=== PATIENT | female | born 1960 | race Caucasian/White ===

== ENCOUNTER 2019-08-10 09:31 | Inpatient (IN) | payer OTHER ==
[~2019-08-10] VITALS: Ht 165.1 cm; Wt 64.9 kg
[2019-08-10 09:41] VITALS: Ht 165.1 cm; Wt 64.9 kg
--- NOTE | 2019-08-10 10:18 | NUR ---
PT COMES TO ER WITH CONGESTION/COUGH X 3 WEEKS,PROGRESSIVELY GETTING WORSE THIS AM, DENIES CP , BUT REPORTS SOB. PTPALE IN COLOR, DIAPHORETIC WITH DRY COUGHING SPELLS. SON AT [facility] STATES HE WAS SICK TOO BT GETTING BETTER. DENY ANY RECENT TRAVEL. IV SL TO LEFT AC, MEDICATED ORDERED. IV FLUIDS INFUSING WELL. WILL CONT TOMONITOR.
[2019-08-10 10:31] LABS: CALCIUM 9.3 mg/dL (8.5-10.1); CHLORIDE SERUM 104 mmol/L (98-107); CREATININE SERUM 0.8 mg/dL (0.6-1.0); GFR1 > 60 mL/min; GLUCOSE SERUM 101 mg/dL (74-106); POTASSIUM SERUM 3.9 mmol/L (3.5-5.1); SODIUM SERUM 140 mmol/L (136-145)
[2019-08-10 10:36] LABS: ALBUMIN 3.2 g/dL (3.4-5.0); ALKALINE PHOSPHATASE 126 U/L (46-116); ALT/SGPT 22 U/L (14-59); AST/SGOT 13 U/L (15-37); BILIRUBIN TOTAL 0.3 mg/dL (0.20-1.00); TOTAL PROTEIN, SERUM 8.3 g/dL (6.4-8.2)
[2019-08-10 11:09] LABS: BASOPHIL % 0.2 % (0-2); PLATELET COUNT 477 x10^3mcL (130-400); RED CELL DISTRIBUTION WIDTH 14.8 % (11.5-14.5)
--- NOTE | 2019-08-10 11:19 | NUR ---
PT CONTINUES TO HAVE DRY COUGHING SPELLS. PT HAS MASK ON. WILL CONT TO MONITOR.
--- NOTE | 2019-08-10 11:28 | NUR ---
PT UPDATED ONPLAN OF CARE, PT VERBALIZED UNDERSTANDING. IV ANBX STARTED, CALL LIGHT WITHIN REACH. WILL CONT TO MONITOR.
[2019-08-10 11:38] LABS: UA SPECIFIC GRAVITY 1.025 (1.005-1.035); microscopic required? YES; urine erythrocyte NEGATIVE (NEGATIVE)
--- NOTE | 2019-08-10 13:10 | NUR ---
REPORT GIVEN TO SAMANTHA MARTÍNEZ, UPDAED ON STATUS, LABS AND VITALS. PT SABLE FOR TRANSFER. SL-INTACT.
--- NOTE | 2019-08-10 13:30 | NUR ---
RECEIVED PT VIA [employer] FROM E/D, ACCOMPANIED BY TRANSPORTER. PT A/A/O X 4, CALM, COOPERATIVE; C/O CONSTANT THROBBING H/A 12/29. AMBULATORY, NO GAIT OR BALANCE IMPAIRMENT NOTED WHEN WALKING FROM GURNEY TO BED. DENIES CHEST PAIN OR DISCOMFORT AT THIS TIME. SCD BY BEDSIDE; RESTRICTED EXTREMITY USE TO RUE 2/2 R MASTECTOMY. BUL CLEAR, BLL COARSE CRACKLES, CHEST RISING EVENLY, R/A, 96%, C/O DRY COUGH. WEARS FULL UPPER DENTURES. IV SITE LFA 20G, CDI. ORIENTED PT TO ROOM, BED CONTROLS, CALL LIGHT SYSTEM. SIDE RAILS UP X 2, BED IN LOW POSITION. WILL ENDORSE TO MAURICIO CASTRO.
[2019-08-10 14:29] VITALS: BP 153/65
--- NOTE | 2019-08-10 14:50 | NUR ---
PATIENT COMPLAINING OF HEADACHE 01/29. TYLENOL 650 MG PO GIVEN. WILL CONTINUE TO MONITOR.
--- NOTE | 2019-08-10 16:40 | NUR ---
PATIENT IN BED, WATCHING TV. FAMILY AT BEDSIDE. NON PRODUCTIVE COUGH NOTED. REMAINS ON ROOM AIR. NO ACUTE RESP DISTRESS NOTED. NO COMPLAINTS OF PAIN AT THIS TIME. IV INTACT AND PATENT. NO ERYTHEMA/SWELLING NOTED. SAFETY PRECAUTION IN PLACE. CALL LIGHT WITHIN REACH. WILL CONTINUE TO MONITOR. PNEUMOCOCCAL VACCINE GIVEN TO LEFT ARM. TOLERATED WELL. BANDAID IN PLACE.
--- NOTE | 2019-08-10 18:34 | NUR ---
PATIENT REQUESTING TO REMOVE IV FOR A LITTLE BIT FOR CONVENIENCE AND TO GO TO BATHROOM. INFORMED PATIENT THAT IV NEEDS TO BE REATTACHED TO CONTINUE INFUSION OF ABX. PT VERBALIZED UNDERSTANDING. NO ACUTE RESP DISTRESS NOTED. NONPRODUCTIVE COUGH NOTED. NO COMPLAINTS OF PAIN AT THIS TIME. SAFETY PRECAUTION IN PLACE. CALL LIGHT WITHIN REACH. WILL ENDORSE CARE TO PORTABLE IRRIGATION OPERATOR NURSE.
--- NOTE | 2019-08-10 19:35 | NUR ---
RECEIVED PT IN BED AWAKE, ALERT,ORIENTED X4. LUNG SOUNDS DIMINISHED AT THE BASES. PT HAS NO SOB ON ROOM AIR BUT FREQUENT COUGHING NOTED. PT STATED THERE IS NO PHLEGM COMING OUT. PT HAS NO C/O PAIN AT THIS TIME. W/ HL TO LTFA INTACT. CALL LIGHT W/IN REACH.
[2019-08-10 21:15] VITALS: BP 123/63
[2019-08-11 02:50] VITALS: BP 123/63
--- NOTE | 2019-08-11 03:05 | NUR ---
PT SEEN BY RESP. THERAPIST AT THIS TIME.
--- NOTE | 2019-08-11 05:22 | NUR ---
PT SLEPT IN SHORT INTERVALS. SHE WAS COUGHING FREQUENTLY ( DR. ROSARIO WAS INFORMED). SHE HAD NO C/O PAIN. DUE IV MEDS GIVEN. HL TO LTFA INTACT AND PATENT. ALL NEEDS ATTENDED TO.
[2019-08-11 05:57] VITALS: BP 137/55
[2019-08-11 06:23] LABS: BASOPHIL % 0.4 % (0-2); PLATELET COUNT 390 x10^3mcL (130-400)
[2019-08-11 06:49] LABS: ALKALINE PHOSPHATASE 132 U/L (46-116); ALT/SGPT 23 U/L (14-59); AST/SGOT 12 U/L (15-37); BILIRUBIN TOTAL 0.26 mg/dL (0.20-1.00); CALCIUM 9.5 mg/dL (8.5-10.1); CARBON DIOXIDE 29.6 mmol/L (21-32); CHLORIDE SERUM 104 mmol/L (98-107); CREATININE SERUM 0.7 mg/dL (0.6-1.0); GFR1 > 60 mL/min; GLUCOSE SERUM 89 mg/dL (74-106); SODIUM SERUM 140 mmol/L (136-145); TOTAL PROTEIN, SERUM 7.9 g/dL (6.4-8.2)
[2019-08-11 06:50] LABS: ALBUMIN 2.9 g/dL (3.4-5.0)
[2019-08-11 07:03] LABS: RED CELL DISTRIBUTION WIDTH 15.1 % (11.5-14.5)
[2019-08-11 07:39] VITALS: BP 154/55
--- NOTE | 2019-08-11 08:00 | NUR ---
RECEIVED PATIENT A/A/OX4; COUGHING FREQUENTLY, NON-PRODUCTIVE. HOARSE VOICE.NO SOB ON RA. O2 SAT 93%. BREATHING SOUND DIMINISHED TATI BASES. DENIED CHEST PAIN. AMBULATORY. POOR APPETITE. IVHL'D TO [facility]. SITE CLEAN. CALL LIGHT IN REACH.
--- NOTE | 2019-08-11 10:26 | NUR ---
DR. PLUNKETT CAME TO SEE PATIENT. NEW ORDER WRITTEN.
[2019-08-11 13:22] VITALS: BP 160/79
[2019-08-11 17:34] VITALS: BP 127/82
--- NOTE | 2019-08-11 17:51 | NUR ---
HAD A LONG TIME NAP. VOICE HOARSE. COUGHING SLIGHT SUBSIDING. NO SOB ON RA. ENDORSED CARE TO NOC NURSE.
--- NOTE | 2019-08-11 19:35 | NUR ---
RECEIVED PT IN BED ASLEEP BUT EASILY AROUSABLE. LUNG SOUNDS DIMINISHED AT THE BASES. NO SOB AT THIS TIME. SHE HAS NO C/O PAIN. PT STILL COUGHING FREQUENTLY . W/ HL TO LTFA. CALL LIGHT W/IN REACH.
[2019-08-11 21:41] VITALS: BP 110/70
--- NOTE | 2019-08-12 03:00 | NUR ---
PT ASLEEP BUT EASILY AROUSABLE. PT ANSWERED " I'M OKAY " WHEN ASKED HOW SHE IS THEN WENT BACK TO SLEEP.
--- NOTE | 2019-08-12 05:27 | NUR ---
PT SLEPT IN LONG INTERVALS. SHE HAD NO C/O SOB AND REMAINED ON ROOM AIR THROUGHOUT THE NIGHT. PT HAD NO C/O PAIN. HL TO LTFA INTACT. ALL NEEDS ATTENDED TO.
[2019-08-12 05:48] VITALS: BP 108/63
[2019-08-12 06:13] LABS: BASOPHIL % 0.5 % (0-2)
[2019-08-12 06:15] LABS: PLATELET COUNT 462 x10^3mcL (130-400); RED CELL DISTRIBUTION WIDTH 14.8 % (11.5-14.5)
[2019-08-12 07:12] LABS: ALKALINE PHOSPHATASE 126 U/L (46-116); ALT/SGPT 24 U/L (14-59); AST/SGOT 20 U/L (15-37); BILIRUBIN TOTAL 0.1 mg/dL (0.20-1.00); CALCIUM 9.5 mg/dL (8.5-10.1); CARBON DIOXIDE 26.8 mmol/L (21-32); CHLORIDE SERUM 101 mmol/L (98-107); CREATININE SERUM 0.7 mg/dL (0.6-1.0); GFR1 > 60 mL/min; GLUCOSE SERUM 89 mg/dL (74-106); MAGNESIUM 2.3 mg/dL (1.8-2.4); POTASSIUM SERUM 3.5 mmol/L (3.5-5.1); SODIUM SERUM 140 mmol/L (136-145)
[2019-08-12 07:15] LABS: ALBUMIN 3.1 g/dL (3.4-5.0); TOTAL PROTEIN, SERUM 8.3 g/dL (6.4-8.2)
--- NOTE | 2019-08-12 07:30 | NUR ---
PT IS AAOX4. NORMAL S1 S2 NOTED. IV CATH TO LFA PATENT. SITE WNL. RESP EVEN, SHALLOW, WITH SOB UPON EXERTION. LUNG SOUNDS DIMINISHED BILATERALLY, ON R/A. PT DENIES PAIN AT THIS TIME. CALL LIGHT WITHIN REACH. BED IN LOWEST POSITION.
[2019-08-12 08:33] VITALS: BP 147/74
--- NOTE | 2019-08-12 09:30 | NUR ---
DUE MEDS GIVEN AND TOLERATED WELL. PT DENIES PAIN AND DISCOMFORT. CALL LIGHT WITHIN REACH. WILL CONTINUE TO MONITOR.
[2019-08-12 12:55] VITALS: BP 119/74
--- NOTE | 2019-08-12 15:55 | NUR ---
SCHEDULED MED GIVEN AND TOLERATED WELL. PT RESP SHALLOW WITH MILD SOB WHEN TALKING AND MOVING IN BED. PT DENIES PAIN. CALL LIGHT WITHIN REACH.
[2019-08-12 16:13] VITALS: BP 144/64
--- NOTE | 2019-08-12 18:50 | NUR ---
PT IS AAOX1. PT IV TO LAC PULLED OUT. NEW IV CATH STARTED TO LH, 22 G NO FIRST ATTEMPT. SITE WNL. COVERED WITH CDI DRESSING. PT NOTED WITH NONPRODUCTIVE COUGH. NO R/A. DENIES PAIN AND DISCOMFORT. CALL LIGHT WITHIN REACH. BED IN LOWEST POSTION. WILL ENDORSE TO LOLI RN.
--- NOTE | 2019-08-12 19:25 | NUR ---
RECIEVED PT RESTING IN BED WITH NO ACUTE DISTRESS NOTED AT THIS TIME, ASSESSMENT PERFORMED AT THIS ITME, PT IS A/OX4 NO COMPLAINTS OF [place] OR DIZZINESS AT THIS TIME, PT LUNG SOUNDS DIMINISHED, ON RA NO SOB, PT DENIES PAIN AT THIS TIME, IV TO THE CDI, ALL NEEDS ATTENDED TO AT THIS TIME, SAFETY PRECAUTIONS IN PLACE, WILL CONTINUE TO MONITOR
[2019-08-12 20:38] VITALS: BP 148/64
--- NOTE | 2019-08-13 00:40 | NUR ---
PT RESTING IN BED ON LEFT SIDE WITH NO ACUTE DISTRESS NOTED AT THIS TIME, RESPIRATIONS EVEN AND UNLABORED, NO SIGNS OF SOB OR PAIN, ALL NEEDS ATTENDED TO, SAFETY PRECAUTIONS IN PLACE, WILL CONTINUE TO MONITOR
--- NOTE | 2019-08-13 05:11 | NUR ---
PT RESTED COMFORTABLY THROUGH THE NIGHT, PT COMPLAINED OF COUGHING, BUT NO SOB THROUGH NIGHT, PT DENIED PAIN DURING CARE, ALL PT NEEDS ATTENDED TO, VSS, SAFETY PRECAUTIONS IN PLACE, WILL CONTINUE TO MONITOR AND ENDORSE CARE.
[2019-08-13 05:42] VITALS: BP 143/53
[2019-08-13 06:29] LABS: ALKALINE PHOSPHATASE 128 U/L (46-116); ALT/SGPT 22 U/L (14-59); AST/SGOT 19 U/L (15-37); BILIRUBIN TOTAL 0.19 mg/dL (0.20-1.00); CALCIUM 9.6 mg/dL (8.5-10.1); CARBON DIOXIDE 28.5 mmol/L (21-32); CHLORIDE SERUM 103 mmol/L (98-107); CREATININE SERUM 0.8 mg/dL (0.6-1.0); GFR1 > 60 mL/min; GLUCOSE SERUM 105 mg/dL (74-106); MAGNESIUM 2.3 mg/dL (1.8-2.4); POTASSIUM SERUM 3.7 mmol/L (3.5-5.1); SODIUM SERUM 141 mmol/L (136-145)
[2019-08-13 06:49] LABS: BASOPHIL % 0.5 % (0-2)
[2019-08-13 07:04] LABS: PLATELET COUNT 484 x10^3mcL (130-400); RED CELL DISTRIBUTION WIDTH 14.9 % (11.5-14.5)
[2019-08-13 07:17] LABS: ALBUMIN 3.1 g/dL (3.4-5.0)
--- NOTE | 2019-08-13 07:45 | NUR ---
RECEIVED PATIENT FROM MAURICIO SMITH. PATIENT IN BED AT THIS TIME, NO COMPLAINTS OF SOB. A/OX4. SPOKE WITH PATIENT ABOUT PLAN OF CARE TODAY INCLUDING ANITIBIOTICS AND PATIENT AGREES. NO QUESTIONS AT THIS TIME. WILL WAIT FOR DR PLUNKETT TO ARRIVE AND SPEAK WITH PATIENT. CALL LIGHT IN REACH AT THIS TIME
[2019-08-13 08:29] VITALS: BP 153/75
--- NOTE | 2019-08-13 09:37 | NUR ---
PATIENT APPEARS AGITATED IN ROOM, REMOVED IV CATHETER AND INTACT. PATIENT STATES THAT SHE "NEEDS TO GO HOME, I HAVE ANIMALS THAT I HAVEN'T FED IN 4 DAYS". INFORMED PATIENT SHE HAS RIGHT TO SIGN OUT AMA. INFORMED CHARGE NURSE R[place], AND PAGED DR STRONG. SPOKE WITH DR STRONG AND STATES "JUST LET HER GO". SIGNATURES OBTAINED FROM PATIENT, ARM BANDS REMOVED, REMINDED PATIENT THAT IF SHE DEVELOPS A FEVER OR FEELS SHORT OF BREATH TO GO TO THE NEAREST ED. PATIENT VERBALIZES UNDERSTANDING AND AGREES. PATIENT ESCORTED WITH BELONGINGS DOWN TO LOBBY AT THIS TIME.
== END 2019-08-13 09:33 | disposition left against medical advice (07) | DRG 720 ==
LOC: ED 09:31 → MU 12:48
PROVIDERS: Emergency Medicine; ADMIT Internal Medicine Pulmonary Disease
DX: A41.9 Sepsis, unspecified organism (principal); J18.9 Pneumonia, unspecified organism; E03.9 Hypothyroidism, unspecified; E05.00 Thyrotoxicosis with diffuse goiter without thyrotoxic crisis or storm; Z53.29 Procedure and treatment not carried out because of patient's decision for other reasons; F17.200 Nicotine dependence, unspecified, uncomplicated; Z85.3 Personal history of malignant neoplasm of breast; Z79.899 Other long term (current) drug therapy
CPT/HCPCS: 87804; 90732; G0378; J0456; J0696; J1644; J1885; J1956; J7030; J7040; J7620